=== PATIENT | female | born 1985 | race Two or more races ===

== ENCOUNTER 2017-01-24 16:57 | Inpatient (IN) | payer MEDICAID ==
[2017-01-24 17:07] VITALS: BMI 34.0
--- NOTE | 2017-01-24 17:22 | C.PDOC ---
History Of Present Illness Patient presents to ED requesting detox from benzodiazepines, was prescreened by crisis/Dr. Kim for admission. Patient states her last use of Xanax/ Klonopin was yesterday afternoon, and she also took double dose yesterday of her usual methadone. Patient is approx 8 weeks (due date 03/21), denies abdominal/pelvic pain, vaginal bleeding, dysuria. Time Seen by Provider: 01/24/17 17:06 Chief Complaint (Nursing): Substance Abuse History Per: Patient History/Exam Limitations: no limitations Onset/Duration Of Symptoms: Persistent Current Symptoms Are (Timing): Still Present Modifying Factor(s): Narcotics (methadone), Other (benzos) Severity: Moderate Past Medical History Reviewed: Historical Data, Nursing Documentation, Vital Signs Vital Signs: Last Vital Signs Temp 98.1 F 01/24/17 17:06 Pulse 75 01/24/17 17:06 Resp 18 01/24/17 17:06 BP 99/51 L 01/24/17 17:06 Pulse Ox 97 01/24/17 18:35 - Medical History PMH: No Chronic Diseases Family History: States: No Known Family Hx - Social History Hx Alcohol Use: Yes Hx Substance Use: Yes - Immunization History Hx Tetanus Toxoid Vaccination: No Hx Influenza Vaccination: No Hx Pneumococcal Vaccination: No Review Of Systems Except As Marked, All Systems Reviewed And Found Negative. Constitutional: Negative for: Fever, Chills Cardiovascular: Negative for: Chest Pain Respiratory: Negative for: Shortness of Breath Gastrointestinal: Negative for: Nausea, Vomiting, Abdominal Pain, Diarrhea Genitourinary: Negative for: Vaginal Bleeding, Pelvic Pain Skin: Negative for: Rash Psych: Positive for: Other (benzo/methadone use) Physical Exam - Physical Exam Appears: Well, Non-toxic, No Acute Distress, Other (drowsy appearing) Skin: Normal Color, Warm, Dry Eye(s): bilateral: Normal Inspection Oral Mucosa: Moist Cardiovascular: Rhythm Regular Respiratory: Normal Breath Sounds, No Rales, No Rhonchi, No Wheezing Gastrointestinal/Abdominal: Normal Exam, Bowel Sounds, Soft, No Tenderness, Other (gravid, fundus approx 4cm below diaphragm) Neurological/Psych: Oriented x3 ED Course And Treatment - Laboratory Results Result Diagrams: 01/24/17 17:28 01/24/17 17:28 O2 Sat by Pulse Oximetry: 97 (RA) Pulse Ox Interpretation: Normal Progress Note: Blood work, UA, UDS ordered and reviewed. 6:30PM- Patient medically cleared. UA shows mild UTI, recommend Macrobid 100mg PO BID x 7 days. Disposition - Disposition Disposition Time: 19:00 Condition: STABLE Forms: [facility] (Icelandic) - Clinical Impression Clinical Impression: Benzodiazepine abuse, Opiate dependence, UTI (urinary tract infection) Physician Patient Turnover Patient Signed Over To: Sofia De Oliveira Handoff Comments: pending crisis/dispo
[2017-01-24 17:33] LABS: BASO % 0.3 % (0.0-2.0); EOS # 0.3 K/uL (0.0-0.7); HEMOGLOBIN 10.1 g/dL (11.0-16.0); LYMPH # 1.9 K/uL (1.0-4.3); MEAN CELL VOLUME 87.4 fL (81.0-99.0); MEAN CORPUSCULAR HEMOGLOBIN 30.6 pg (27.0-31.0); MEAN PLATELET VOLUME 8.2 fL (7.2-11.7); MONO # 0.7 K/uL (0.0-0.8); MONO % 8.5 % (0.0-10.0); NEUT # 4.9 K/uL (1.8-7.0); NEUT % 63.2 % (50.0-75.0); RBC 3.31 Mil/uL (3.80-5.20); RED CELL DISTRIBUTION WIDTH 13.4 % (11.5-14.5); WHITE BLOOD COUNT 7.7 K/uL (4.8-10.8)
[2017-01-24 17:55] LABS: ALBUMIN 2.9 g/dL (3.5-5.0)
[2017-01-24 17:58] LABS: ALT/SGPT 29 U/L (9-52); AST/SGOT 29 U/L (14-36); BLOOD UREA NITROGEN 9 mg/dL (7-17); CALCIUM 8.3 mg/dl (8.6-10.4); GFR AFRICAN-AMERICAN > 60; GFR NON-AFRICAN AMERICAN > 60
[2017-01-24 18:02] LABS: SQUAMOUS EPITHIAL 5 /hpf (0-5); URINE BACTERIA OCC (<OCC); URINE BILIRUBIN NEGATIVE (NEGATIVE); URINE BLOOD NEGATIVE (NEGATIVE); URINE CLARITY Clear (Clear); URINE GLUCOSE (UA) NORMAL (Normal); URINE LEUKOCYTE ESTERASE 1+ Leu/uL (Negative); URINE NITRATE NEGATIVE (NEGATIVE); URINE PROTEIN 1+ mg/dL (NEGATIVE)
[2017-01-24 18:04] LABS: BARBITURATES, UR NEGATIVE (NEGATIVE)
[2017-01-24 18:05] LABS: BENZODIAZEPINES, UR POSITIVE (NEGATIVE)
[2017-01-24 18:06] LABS: URINE COLOR YELLOW (YELLOW)
[2017-01-24 18:07] LABS: OPIATES, UR NEGATIVE (NEGATIVE)
[2017-01-24 18:08] LABS: PHENCYCLIDINE, UR NEGATIVE (NEGATIVE)
--- NOTE | 2017-01-24 22:20 | US ---
EXAM: US After First Trimester, Transabdominal CLINICAL HISTORY: 31 years old, female; Condition or disease; Lmp or gestational age (weeks): 32 wks; Other: Polysubstance abuse; 3rd ; ; Additional info: 8 months preg, polysubstance abuse, heart defect as per patient. TECHNIQUE: Real-time transabdominal obstetrical ultrasound of the maternal pelvis and a second or third trimester with image documentation. COMPARISON: No relevant prior studies available. FINDINGS: Fetus: Single live intrauterine gestation. Heart rate: heart rate of 127 beats per minute. Presentation: Cephalic. Placenta: Anterior fundal placenta. No placenta previa or abruption. Amniotic fluid: Normal. Anatomy: No gross anomaly is appreciated; however, limited visualization of heart. BIOMETRICS Gestational age by US: Estimated gestational age of 32 weeks 0 days by measurements. EFW: Estimated weight of 1863 g. BPD: 8.1 cm, correlating with 32 weeks 2 days. HC: 29.3 cm, correlating with 32 weeks 3 days. AC: 28.3 cm, correlating with 32 weeks 2 days. FL: 5.9 cm, correlating with 30 weeks 6 days. MATERNAL: Uterus: Unremarkable. No myometrial mass. Cervix: No cervical dilatation or effacement. Free fluid: No free fluid. IMPRESSION: 1. Single live intrauterine gestation. 2. Incidental/non-acute findings are described above.
--- NOTE | 2017-01-24 23:11 | CP.PCM.CON ---
History of Present Illness - History of Present Illness History of Present Illness: Asked by Dr. De Oliveira to see patient, 32 weeks admitted for detox Patient received in bed #13, in main E.D. - ambulating; slightly disoriented; slurred speech. 31y.o. P3023, LMP unsure, ALBERT 03/21/17, EGA 32 weeks, admitted for management of recent polysubstance abuse, in addition to her methadone maintenance. Patient reports using crack/cocaine, Xanax in the past 6 weeks; concerned that "I'm hurting my baby", and presents to E.D. (+) AFM; denies LOF, VB, Ctx. (+) occasional suprapubic pressure; +/- urinary frequency; denies dysuria. care: Ob provider = Dr. William Kirby, based in [place] .. "I'm high risk due to my methadone" Denies any other issues. Previous C/S x 3 P Ob: C/S x 3, all males, 2003, 8lb 9oz; 2006, 9lb 1oz; 2011, 8lb 2oz. First 2 delivered at [facility]; last one at [facility] - all no complications. No h/o GDM. 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 Denies STIs. (+) h/o abnormal Pap "some time ago" - S/ P colpo: since then "they've been fine" PMH: denies PSH: C/S x 3; D&C x 2 NKDA Meds: PNV, methadone 105 mg QD Soc Hx: (+) tobacco, 5 cig/day, decreased from 1/2 ppd x 18 years. (+) EtOH - Ciroc in past 6 weeks; other illicit drug use - as above. Fam Hx: Mother alive 51 y.o. Father alive 55 y.o., both, no med issues. MGM - leukemia; MGF - colon CA Review of Systems - Review of Systems Systems not reviewed;Unavailable: Intoxicated All systems: reviewed and no additional remarkable complaints except (as per HPI ) Past Patient History - Infectious Disease Hx of Infectious Diseases: None - Tetanus Immunizations Tetanus Immunization: Unknown - Past Social History Smoking Status: Light Smoker < 10 Cigarettes Daily Alcohol: Other Drugs: Cocaine, Other (Xanax) - CARDIAC Hx Cardiac Disorders: No Hx Hypertension: No - PULMONARY Hx Respiratory Disorders: No Hx Tuberculosis: No - NEUROLOGICAL Hx Neurological Disorder: No HX Cerebrovascular Accident: No Hx Seizures: No - HEENT Hx HEENT Problems: No - RENAL Hx Chronic Kidney Disease: No - ENDOCRINE/METABOLIC Hx Endocrine Disorders: No - HEMATOLOGICAL/ONCOLOGICAL Hx Blood Disorders: No Hx Cancer: No Hx Human Immunodeficiency Virus (HIV): No - INTEGUMENTARY Hx Dermatological Problems: No - MUSCULOSKELETAL/RHEUMATOLOGICAL Hx Musculoskeletal Disorders: No - GASTROINTESTINAL Hx Gastrointestinal Disorders: No - GENITOURINARY/GYNECOLOGICAL Hx Genitourinary Disorders: No Hx Sexually Transmitted Disorders: No - PSYCHIATRIC Hx Substance Use: Yes - SURGICAL HISTORY Hx Surgeries: Yes Hx Section: Yes (X3) Hx Dilation and Curettage: Yes (x 2) - ANESTHESIA Hx Anesthesia: Yes Hx Anesthesia Reactions: No Meds Allergies/Adverse Reactions: Allergies Allergy/AdvReac Type Severity Reaction Status Date / Time No Known Allergies Allergy Verified 01/24/17 17:04 Physical Exam - Constitutional Appears: Other (confused. Somnolent.) - Eye Exam Eye Exam: Normal appearance - Respiratory Exam Respiratory Exam: NORMAL BREATHING PATTERN - Cardiovascular Exam Cardiovascular Exam: REGULAR RHYTHM - GI/Abdominal Exam Additional comments: Gravid; soft, non tender. (+) suprapubic tenderness; healed Pfannenstiel scar - Exam Additional comments: Cervix: closed, long, posterior, firm - Extremities Exam Extremities exam: Positive for: full ROM, normal inspection, pedal edema (trace pedal edema, bilaterally) - Neurological Exam Neurological exam: Normal Gait, Oriented x3 - Skin Skin Exam: Dry, Intact, Normal Color, Warm Results - Vital Signs Recent Vital Signs: Last Vital Signs Temp 98.1 F 01/24/17 17:06 Pulse 75 01/24/17 17:06 Resp 18 01/24/17 17:06 BP 99/51 L 01/24/17 17:06 Pulse Ox 97 01/24/17 19:02 - Labs Result Diagrams: 01/24/17 17:28 01/24/17 17:28 Assessment & Plan - Assessment and Plan (Free Text) Assessment: Ob ultrasound report reviewed by me: AGA 32 weeks; cephalic, anterior fundal placenta. EFW 1863 grams. FHR 127 bpm Assessment: 31 y.o. P3023, previous C/S x 3, polysubstance abuse exacerbation, on methadone maintenance - admitted for management. Early UTI. Mild anemia. Patient is clinically stable Plan: 1) Medical management, as per Detox Unit/Team 2) continue vitamins 1 tab p.o. QD 3) continue nitrofurantoin 100 mg p.o. BID x 7 days 4) Iron supplementation - 1 tab p.o. QD 4) NST once a day: please call Labor and delivery Thank you for the pleasure of this consult - Date & Time Date: 01/24/17 Time: 23:24
[2017-01-24] MEDS ORDERED: Aluminum Hydroxide/Magnesium Hydroxide Susp (30 mL) PO PRN (23:52)
--- NOTE | 2017-01-25 07:25 | PCM.BM ---
<MiguelitoTiffanyTeresa Padmini - Last Filed: 01/25/17 07:19> Treatment Plan Problems - Problems identified on initial assessmt Benzodiazepine Dependence Date Initiated: 01/25/17 Time Initiated: 07:00 Assessment reference: NA Status: Active Treatment assets and liabiliti Patient Assests: ADL independent Patient Liabilities: substance abuse - Milieu Protocol Maintain good personal hygiene: daily Encourage regular showers, daily Remind patient to perform daily oral care, daily Assist patient to perform ADL's Maintain personal safety: every shift Educate patient to report safety concerns to staff, every shift Monitor environment for contraband/sharps Medication safety: Monitor for expected outcome, potential side effects: every shift, Assess barriers to learning: every shift, Assess readiness for medication education: every shift <Mirela Kim - Last Filed: 01/25/17 09:33> - Diagnosis (1) Benzodiazepine abuse Status: Acute Interventions: 01/25/17 09:33 * Assess 7x/week regarding severity of withdrawal * Educate regarding risks, benefits, side effects and alternatives of medications * Use Motivational Interviewing for abstinence * Use CBT for relapse prevention * Medication management for withdrawal symptoms * Encourage medication assisted treatment * <Nelly Rios - Last Filed: 01/25/17 14:11> Family Contact Family involvement: Famliy/SO not involved Family contact: Patient agrees to contact - Goals for Treatment Patient goals for treatment: Transition from detox to a "[facility]" rehab program. Discharge/Continuing Care - Education Needs Education Needs: Patient Medication, Patient Diagnosis/Disease Process, Patient Coping Skills, Patient Anger Management skills, Patient Placement options, Patient Community resources - Discharge Discharge Criteria: Tolerates medication w/o severe side effects, No longer exhibiting s/s of withdrawal, Reduction of target symptoms Discharge to:: Substance Abuse Rehab - Treatment Team Participation Patient/Family/SO Statement: 01/25/17 14:09 "I am going to a [facility]" program. They are holding a bed for me until . It's the only way I can keep DYFS from taking my baby away from me." Discussed with Family/SO: No Was Patient/Family/SO present at Treatment Team Meeting: Yes
[2017-01-25] MEDS ORDERED: Methadone 40 mg Tab PO SCH (10:00)
[2017-01-25] MEDS: Methadone 40 mg Tab PO SCH (13:11)
[2017-01-25] MEDS: Multiple Vitamins Tab PO SCH (13:18)
[2017-01-25] MEDS: Calcium-Vit D 250 mg-125 Units Tab UD PO SCH (13:20)
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
--- NOTE | 2017-01-26 08:51 | PCM.PYCHPN ---
Psychiatric Progress Note - Psychiatric Progress Note Patient seen today, length of contact: 16 mins Patient Chief Complaint: I'm feeling good Problems Identified/Issues Discussed: The patient was seen, chart reviewed, case discussed with staff. The patient is compliant with medications and reports no side-effects, risks discussed. Symptoms are improving but needs more time to stabilize. After care discussed, support and psychoeducation given. Medication Change: Yes (taper dose changes daily) Medical Record Reviewed: Yes Mental Status Examination - Cognitive Function Orientation: Person, Place, Situation Memory: Intact Attention: WNL Concentration: WNL Association: WNL Fund of Knowledge: WNL - Mood Mood: Neutral - Affect Affect: Broad - Speech Speech: Appropriate - Language Language: Word Retrieval - Formal Thought Process Formal Thought Process: No Impairment - Suicidal Ideation Suicidal Ideation: No - Homicidal Ideation Homicidal Ideation: No Goal/Treatment Plan - Goal/Treatment Plan Need for Continued Stay: Discharge may exacerbated symptoms Progress Toward Problem(s) and Goals/Treatment Plan: Patient was warned about risks, benefits and alternatives of treatment including no treatment - she understood and agreed to treatment. Monitor BP chlordiazepoxide taper Methadone maintenance dose 105mg As needed meds and vitamins -maalox 30ml po tid prn for constipation -clonidine 0.1mg po q8 prn for elevated BP -hydroxyzine 50mg po q6 prn for anxiety -acetaminophen 650mg po q4 prn for pain -loperamide 2mg po q8 prn for diarrhea -metoclopramide 5mg po matt for n/v -quetiapine 50mg po hs for insomnia -trazodone 100mg po hs prn for insomnia -nitrofurantoin 100mg po q12 -nicotine 1 patch td daily Attend groups and activities [place] for abstinence and CBT for relapse prevention Support and psychoeducation Consider and encourage MAT Refer to after care Estimated Date of D/C: 01/29/17 - Smoking Cessation Smoking Cessation Initiated: Yes
[2017-01-26] MEDS: Multiple Vitamins Tab PO SCH (09:43)
[2017-01-26] MEDS: Methadone 40 mg Tab PO SCH (09:46)
[2017-01-26] MEDS: Calcium-Vit D 250 mg-125 Units Tab UD PO SCH (09:46)
--- NOTE | 2017-01-26 19:10 | CARD ---
APPROVED REPORT EKG Measurement Heart [id number] ID [id number] <Conclusion> Normal sinus rhythm Cannot rule out Anterior infarct, age undetermined Abnormal ECG
[2017-01-27] MEDS: Methadone 40 mg Tab PO SCH (09:20)
[2017-01-27] MEDS: Calcium-Vit D 250 mg-125 Units Tab UD PO SCH (09:20)
[2017-01-27] MEDS: Multiple Vitamins Tab PO SCH (09:21)
[2017-01-27] MEDS ORDERED: Multiple Vitamins Tab PO ONE (13:30)
--- NOTE | 2017-01-27 18:04 | PCM.PYCHPN ---
Psychiatric Progress Note - Psychiatric Progress Note Patient seen today, length of contact: 16 mins Patient Chief Complaint: "I'm aggravated" Problems Identified/Issues Discussed: She is seen, chart reviewed and case discussed twice She threw up all her morning meds right after taking them due to the taste of methadone. It is changed to tablets now. She is given an additional 100 mg due to missing dose and her am librium. However, some delay in getting the meds caused anger and she again threatened AMA and "getting high." Risks of impulsivity discussed Overall, however, she is improving. Support given, CA used. Medication Change: Yes (taper dose changes daily) Medical Record Reviewed: Yes Mental Status Examination - Cognitive Function Orientation: Person, Place, Situation Memory: Intact Attention: WNL Concentration: WNL Association: WNL Fund of Knowledge: WNL - Mood Mood: Other (irate) - Affect Affect: Broad - Speech Speech: Appropriate - Language Language: Word Retrieval - Formal Thought Process Formal Thought Process: No Impairment - Suicidal Ideation Suicidal Ideation: No - Homicidal Ideation Homicidal Ideation: No Goal/Treatment Plan - Goal/Treatment Plan Need for Continued Stay: Discharge may exacerbated symptoms, Severe functional impairment Progress Toward Problem(s) and Goals/Treatment Plan: Continue meds Continue OBGY follow up Vitamins prn meds as little as possible She is accepted by [facility], to start on Sunday Estimated Date of D/C: 01/29/17
[2017-01-28] MEDS: Multiple Vitamins Tab PO SCH (09:27)
[2017-01-28] MEDS: Calcium-Vit D 250 mg-125 Units Tab UD PO SCH (09:27)
--- NOTE | 2017-01-28 09:47 | PCM.PYCHPN ---
Psychiatric Progress Note - Psychiatric Progress Note Patient seen today, length of contact: 17 min Patient Chief Complaint: "I'm better today, I'll stay" Problems Identified/Issues Discussed: The pt is seen, chart reviewed, case discussed with staff. Support given, CBT and VA used briefly No new symptoms reported, improving and will be done soon. No SEs from medications, risks discussed. After care discussed again. She decided NOt to sign out and stay in and go to rehab as planned. She has the insight that she might relapse if she goes outside even for one day. Medication Change: Yes (taper dose changes daily) Medical Record Reviewed: Yes Mental Status Examination - Cognitive Function Orientation: Person, Place, Situation Memory: Intact Attention: WNL Concentration: WNL Association: WNL Fund of Knowledge: WNL - Mood Mood: Other (irate) - Affect Affect: Broad - Speech Speech: Appropriate - Language Language: Word Retrieval - Formal Thought Process Formal Thought Process: No Impairment - Suicidal Ideation Suicidal Ideation: No - Homicidal Ideation Homicidal Ideation: No Goal/Treatment Plan - Goal/Treatment Plan Need for Continued Stay: Discharge may exacerbated symptoms, Severe functional impairment Progress Toward Problem(s) and Goals/Treatment Plan: Continue meds Continue OBGY follow up Vitamins prn meds as little as possible She is accepted by [facility], to start on Sunday Estimated Date of D/C: 01/29/17
--- NOTE | 2017-01-29 08:29 | PCM.PYCHDC ---
Mental Status Examination - Mental Status Examination Orientation: Person, Place, Situation, Time Memory: Intact Mood: Neutral Affect: Broad Speech: Appropriate Attention: WNL Concentration: WNL Association: WNL Fund of Knowledge: WNL Formal Thought Process: No Impairment Description of patient's judgement and insight: Reasonable Suicidal Ideation: No Current Homicidal Ideation?: No Discharge Summary - Discharge Note Reason for Hospitalization: Benzodiazepine detox Consultations:: List each consultation separately and include: 1. Reason for request. 2. Findings. 3. Follow-up Consultations: occupational therapist home based consultation for with polysubstance history No significant findings, patient clinically stable Continue follow up with occupational therapist home based Summary of Hospital Course include:: 1. Description of specific treatment plan utilized for patients during their course of treatmen. 2. Summarize the time- course for resolution of acute symptoms and/or regressed behaviors. 3. Describe issues identified and worked on during hospitalization. 4. Describe medication utilized. 5. Describe medical problems identified and treated. 6. Reassessment of suicide risk Summary of Hospital Course: The pt was admitted and started on treatment with psychotherapy, support, psychoeducation and medications. ND and CBT used. The pt attended groups and activities, as well as milieu therapy. All the risks and benefits of medications, incl. their risks in , are discussed and the patient understood and agreed. The pt improved with the treatments provided. After care discussed with the patient and he went to [facility] and rehab at [facility]. She had attempted to leave [place] twice due to some arguments with staff or pts but she was able to calm herself down with some redirection and support. She was irate and cueto but used few prn's. She waited until she can go to rehab door to door to avoid relapse. - Final Diagnosis (DSM 5) Condition upon Discharge: IMPROVED DSM 5: Sedative, Hypnotic, or Anxiolytic Use Disorder, severe Opioid use disorder - severe, on maintenance treatment Cocaine use d/o - severe Disposition: REHAB FACILITY/REHAB UNIT Follow-up Treatment Plan: Continue below medications after discharge. Follow after care plan as discussed above: [facility] at [facility] Finish antibiotic there Use relapse prevention skills. Return to ER or call 911 if suicidal, homicidal or symptoms relapse. Stay away from stress, alcohol and drugs. Use relaxation techniques. See primary doctor once a year and get labs. Prescriptions/Medication Reconciliation: Calcium Carbonate/Vitamin D [Oscal-D 250 mg-125 Units Tab] 1 tab PO DAILY #30 tab Nitrofurantoin Macrocrystals [Macrobid] 100 mg PO Q12 #4 cap traZODone [Desyrel] 50 mg PO HS PRN #14 tab PRN Reason: Insomnia - Smoking Cessation Smoking Cessation Medication prescribed: No - Antipsychotic Medications Pt discharged on 2 or more routine antipsychotic medications: No
[2017-01-29] MEDS: Multiple Vitamins Tab PO SCH (09:12)
[2017-01-29 09:13] VITALS: BP 107/69; PULSE 70; RESP 20; TEMP 98.4; O2SAT 100
[2017-01-29] MEDS: Calcium-Vit D 250 mg-125 Units Tab UD PO SCH (09:15)
== END 2017-01-29 10:30 | disposition home or self-care (01) | DRG 886 ==
LOC: C.ER 16:57 → C.9E 19:34 → C.7D 21:44
PROVIDERS: ADMIT Psychiatry & Neurology Psychiatry; ATTEND Psychiatry & Neurology Psychiatry
PROC: HZ2ZZZZ Detoxification Services for Substance Abuse Treatment (ICD-10-PCS; principal; 2017-01-25)
PROC: HZ59ZZZ Individual Psychotherapy for Substance Abuse Treatment, Supportive (ICD-10-PCS; 2017-01-25)
DX: O99.323 Drug use complicating pregnancy, third trimester (principal); O23.43 Unspecified infection of urinary tract in pregnancy, third trimester; F10.230 Alcohol dependence with withdrawal, uncomplicated; F14.10 Cocaine abuse, uncomplicated; O99.013 Anemia complicating pregnancy, third trimester; F11.23 Opioid dependence with withdrawal; F13.230 Sedative, hypnotic or anxiolytic dependence with withdrawal, uncomplicated; O99.313 Alcohol use complicating pregnancy, third trimester; Z3A.32 32 weeks gestation of pregnancy; Y90.0 Blood alcohol level of less than 20 mg/100 ml; O99.333 Smoking (tobacco) complicating pregnancy, third trimester; F17.210 Nicotine dependence, cigarettes, uncomplicated; D64.9 Anemia, unspecified; F10.220 Alcohol dependence with intoxication, uncomplicated